=== PATIENT | female | born 1950 ===

== ENCOUNTER → 2023-01-12 | Outpatient (CLI) | payer BC ==
[~2023-01-12] MED LIST: Aspirin EC81 MG PO; CALCIUM CARBON200 MG PO; ERGO400 PO; EVENING PRIMR1000 MG PO; EYE HEALTH ADU1 EACH PO; FISH OIL 1,0001 EAC1 PO; Flax Oil1000 MG PO; GLUCOSAMINE &1 EACH PO; MULTI VITAMIN1 EACH PO; TUMERSAID TABL1 EACH PO; Vitamin B Comple1 EA PO
== END | disposition home or self-care (01) ==
LOC: LAB 15:26 → LAB SHORT 15:26
DX: L01.01 Non-bullous impetigo (principal); L81.4 Other melanin hyperpigmentation; L82.1 Other seborrheic keratosis; D22.5 Melanocytic nevi of trunk; L28.0 Lichen simplex chronicus
CPT/HCPCS: 87070; 87077; 87147; 87186; 87205

== ENCOUNTER 2024-02-08 07:54 | Day surgery (SDC) | payer BC ==
[~2024-02-08] VITALS: Ht 157.5 cm; Wt 72.7 kg
[2024-02-08] MEDS ORDERED: Lactated Ringer's 1,000 ML IV ONE ×2 (08:09→08:47)
[2024-02-08] MEDS ORDERED: propofoL 50 ML IV ONE (08:09)
[2024-02-08] MEDS ORDERED: EVENING PRIMR1300 MG (08:13)
[2024-02-08 10:04] VITALS: BP 118/72
== END 2024-02-08 10:04 | disposition home or self-care (01) ==
LOC: ORSCSDS 07:54
PROVIDERS: Internal Medicine Gastroenterology
PROC: 0DBN8ZX Excision of Sigmoid Colon, Via Natural or Artificial Opening Endoscopic, Diagnostic (ICD-10-PCS; principal; 2024-02-08 09:00)
PROC: 0DBP8ZX Excision of Rectum, Via Natural or Artificial Opening Endoscopic, Diagnostic (ICD-10-PCS; principal; 2024-02-08 09:00)
DX: Z12.11 Encounter for screening for malignant neoplasm of colon (principal); Z86.010 Personal history of colon polyps; K63.5 Polyp of colon; K62.1 Rectal polyp; K57.30 Diverticulosis of large intestine without perforation or abscess without bleeding
CPT/HCPCS: 88305; J2704; J7120